=== PATIENT | male | born 1970 | race Hispanic/Latino ===

== ENCOUNTER 2019-03-06 08:02 | Day surgery (SDC) | payer OTHER ==
[2019-03-06] MEDS ORDERED: NACL 0.9% 500 ML 500 ML ONE (08:47)
[2019-03-06 08:50] LABS: Blood Urea Nitrogen 12 mg/dL (9-20)
[2019-03-06] MEDS ORDERED: NITROSTAT SL ONE (09:05)
[2019-03-06 09:57] VITALS: BP 112/71
[2019-03-06] MEDS ORDERED: LOPRESSOR IV ONE (10:00)
--- NOTE | 2019-03-08 18:06 | CT Calcium Scoring Report ---
Coronary Calcium Score Date of service: 03/08/19 Procedure: High-resolution computed tomographic imaging of the chest was performed on03/06/19 with particular attention paid to the coronary arteries. Images from the examination were analyzed for the presence and extent of coronary artery calcification, using coronary calcium quantification software. The patient tolerated the procedure well and there were no complications. The results of the coronary calcification analysis are provided below. The patient scores are compared with published data related to scores for people of a similar age and the same gender. - Findings Total Agatson Score: 0 Findings: cardia cta: indication: equivocal stress test. informed consent obtained. performed using standard protocol on the 64 slice scanner. images reprocessed and viewed on the workstation right dominant system normal coronary origins normal coronary arteries normal visualized great vessels normal cardiac chambers, wall thickness normal interatiral and interventricular septum normal mitral valve minimal calcium noted in aortic valve, otherwise normal no intracardiac masses no pericardial effuson procedure well tolerated. no compilications
--- NOTE | 2019-03-11 13:25 | Cat Scan Report ---
LIMITED CT OF THE CHEST PER CT CORONARY ANGIOGRAPHY PROTOCOL: History: R94.39. Limited CT of the chest per CT coronary angiography protocol is submitted. The cardiac portion of the exam has been previously interpreted by the Biological Engineer. The included portions of the lungs appear clear without evidence for nodule, mass or infiltrate. The included pleural spaces are clear. No mediastinal or hilar adenopathy is evident. Included upper abdomen and solid abdominal organs are grossly within normal limits. IMPRESSION: Normal limited CT of the chest as noted.
== END 2019-03-06 10:00 | disposition home or self-care (01) ==
LOC: CATHLABREC 08:02
PROVIDERS: ATTEND Internal Medicine Cardiovascular Disease
DX: I25.10 Atherosclerotic heart disease of native coronary artery without angina pectoris (principal); R94.39 Abnormal result of other cardiovascular function study; I10 Essential (primary) hypertension; E78.00 Pure hypercholesterolemia, unspecified; Z79.899 Other long term (current) drug therapy
CPT/HCPCS: 36415; 75574; 82565; 84520; J7040; Q9967